=== PATIENT | male | born 1990 ===

== ENCOUNTER 2017-08-06 14:12 | Emergency (ER) | payer BC ==
[2017-08-06] MEDS ORDERED: Ketorolac 60 MG/2 ML SDV IM ONE (15:17)
[2017-08-06] MEDS ORDERED: Dicyclomine 10 MG Cap PO ONE (15:17)
--- NOTE | 2017-08-06 15:23 | EDM.PDOC ---
ED HPI GENERAL MEDICAL PROBLEM - General Chief Complaint: Abdominal Pain Stated Complaint: ABDOMIAL PAIN Time Seen by Provider: 08/06/17 15:04 - History of Present Illness INITIAL COMMENTS - FREE TEXT/NARRATIVE: HISTORY AND PHYSICAL: History of present illness: The patient is a 27-year-old male with no stated medical history no GI problems in the past and presents with complaints of pain just below his umbilicus that started his morning and has been continuous. It is not associated with nausea vomiting or diarrhea and in fact he had bowel movements today which were normal and not black or bloody. He doesn't have any history of intolerance except sometimes to onions but he does have a history of episodic heartburn but no chest pain or shortness of breath. He currently has no chest pain or shortness of breath no fevers no chills no flank pain or urinary complaints. Patient says he eats well 50% of the time and the other 50% of the time he eats fast foods and drinks caffeinated products. The patient states he did not take any medication for the pain but he does feel somewhat gassy. He tells nursing and me that when he lays down or sits up he feels the discomfort more and he thought it was more of a muscular pain. He doesn't have any history of a discrete trauma. The pain is in the midline just below the umbilicus and does not radiate. The pain does not localize right or left. Review of systems: As per history of present illness and below otherwise all systems reviewed and negative. Past medical history: As per history of present illness and as reviewed below otherwise noncontributory. Surgical history: As per history of present illness and as reviewed below otherwise noncontributory. Social history: No reported history of drug or alcohol abuse. Family history: As per history of present illness and as reviewed below otherwise noncontributory. Physical exam: General: Well-developed well-nourished man who is nontoxic and moves easily in the ED. Vital signs have been reviewed by me HEENT: Atraumatic, normocephalic, negative for conjunctival pallor or scleral icterus, mucous membranes moist, throat clear, neck supple, nontender, trachea midline. Lungs: Clear to auscultation, breath sounds equal bilaterally, chest nontender. Heart: S1S2, regular rate and rhythm no overt murmurs Abdomen: Soft, nondistended, with some tympany on percussion but no rebound or guarding and bowel sounds are slightly hypoactive. Some minimal tenderness just superiorly to the umbilicus and just inferiorly to the umbilicus but this is only on very deep palpation. Negative for masses or hepatosplenomegaly. Negative for costovertebral tenderness. Pelvis: Stable nontender. Genitourinary: Deferred. Rectal: Deferred. Extremities: Atraumatic, negative for cords or calf pain. Neurovascular unremarkable. Neuro: Awake, alert, oriented. Cranial nerves II through XII unremarkable. Cerebellum unremarkable. Motor and sensory unremarkable throughout. Exam nonfocal. Diagnostics: Abdominal x-rays UA CBC CMP amylase lipase Therapeutics: Bentyl Toradol Patient is aware of all testing results and is aware of concerns and reasons to return to the ED. I offered the patient medications for home to trial and he would like to hold off at this time. We discussed dietary changes and reduction of Mountain Dew consumption and he states understanding. Impression: Abdominal pain stable Definitive disposition and diagnosis as appropriate pending reevaluation and review of above. hypogastric area Pain Score (Numeric/FACES): 7 - Related Data Allergies Allergy/AdvReac Type Severity Reaction Status Date / Time No Known Allergies Allergy Verified 08/06/17 14:29 Home Meds: Home Meds Omeprazole 20 mg PO DAILY 08/06/17 [History] Past Medical History - Past Health History Medical/Surgical History: Denies Medical/Surgical History Gastrointestinal History: Reports: Other (See Below) Other Gastrointestinal History: hyperacidity Social & Family History - Family History Family Medical History: Noncontributory - Tobacco Use Smoking Status *Q: Former Smoker Used Tobacco, but Quit: Yes Month Tobacco Last Used: 1 - Recreational Drug Use Recreational Drug Use: No ED ROS GENERAL - Review of Systems Review Of Systems: ROS reveals no pertinent complaints other than HPI. ED EXAM, GENERAL - Physical Exam Exam: See Below (See dictation) Course - Vital Signs Last Recorded V/S: Last Vital Signs Temp 36.9 C 08/06/17 14:12 Pulse 88 08/06/17 14:12 Resp 18 08/06/17 14:12 BP 139/93 H 08/06/17 14:12 Pulse Ox 97 08/06/17 14:12 - Orders/Labs/Meds Labs: Laboratory Tests 08/06/17 08/06/17 08/06/17 Range/Units 15:00 15:28 15:28 WBC 8.04 (4.0-11.0) K/uL RBC 4.86 (4.50-5.90) M/uL Hgb 14.7 (13.0-17.0) g/dL Hct 42.6 (38.0-50.0) % MCV 87.7 (80.0-98.0) fL MCH 30.2 (27.0-32.0) pg MCHC 34.5 (31.0-37.0) g/dL RDW Std Deviation 41.2 (28.0-62.0) fl RDW Coeff of Winnie 13 (11.0-15.0) % Plt Count 265 (150-400) K/uL MPV 10.40 (7.40-12.00) fL Neut % (Auto) 56.8 (48.0-80.0) % Lymph % (Auto) 33.2 (16.0-40.0) % [place] % (Auto) 8.3 (0.0-15.0) % Eos % (Auto) 1.5 (0.0-7.0) % Baso % (Auto) 0.2 (0.0-1.5) % Neut # (Auto) 4.6 (1.4-5.7) K/uL Lymph # (Auto) 2.7 H (0.6-2.4) K/uL [place] # (Auto) 0.7 (0.0-0.8) K/uL Eos # (Auto) 0.1 (0.0-0.7) K/uL Baso # (Auto) 0.0 (0.0-0.1) K/uL Nucleated RBC % 0.0 /100WBC Nucleated RBCs # 0 K/uL Sodium 137 (136-146) mmol/L Potassium 3.9 (3.5-5.1) mmol/L Chloride 104 (98-110) mmol/L Carbon Dioxide 22 (21-31) mmol/L BUN 17 (6.0-23.0) mg/dL Creatinine 0.8 (0.6-1.5) mg/dL Est Cr Clr Drug Dosing TNP Estimated GFR (MDRD) > 60.0 ml/min Glucose 131 H (60-110) mg/dL Calcium 9.3 (8.8-10.8) mg/dL Total Bilirubin 0.4 (0.1-1.5) mg/dL AST 29 (5-40) IU/L ALT 58 H (8-54) IU/L Alkaline Phosphatase 67 (40-150) Total Protein 7.8 (6.0-8.0) g/dL Albumin 4.3 (3.5-5.0) g/dL Globulin 3.5 (2.0-3.5) g/dL Albumin/Globulin Ratio 1.2 L (1.3-2.8) Amylase 48 (10-90) U/L Lipase 24 (7-80) U/L Urine Color YELLOW Urine Appearance CLEAR Urine pH 6.5 (5.0-8.0) Ur Specific [place] 1.015 (1.001-1.035) Urine Protein NEGATIVE (NEGATIVE) mg/dL Urine Glucose (UA) NEGATIVE (NEGATIVE) mg/dL Urine Ketones NEGATIVE (NEGATIVE) mg/dL Urine Occult Blood NEGATIVE (NEGATIVE) Urine Nitrite NEGATIVE (NEGATIVE) Urine Bilirubin NEGATIVE (NEGATIVE) Urine Urobilinogen 0.2 (<2.0) EU/dL Ur Leukocyte Esterase NEGATIVE (NEGATIVE) Urine RBC 0-1 (0-2/HPF) Urine WBC 0-1 (0-5/HPF) Ur Epithelial Cells RARE (NONE-FEW) Urine Bacteria RARE (NEGATIVE) Meds: Medications Discontinued Medications Generic Name Dose Route Start Last Admin Trade Name Freq PRN Reason Stop Dose Admin Dicyclomine HCl 20 mg 08/06/17 15:17 08/06/17 15:28 Bentyl PO 08/06/17 15:18 20 mg ONETIME ONE Administration Ketorolac Tromethamine 60 mg 08/06/17 15:17 08/06/17 15:28 Toradol IM 08/06/17 15:18 60 mg ONETIME ONE Administration Departure - Departure Time of Disposition: 16:19 Disposition: Home, Self-Care 01 Condition: Good Clinical Impression: Abdominal pain Qualifiers: Abdominal location: generalized Qualified Code(s): R10.84 - Generalized abdominal pain - Discharge Information Referrals: PCP,None [Primary Care Provider] - Forms: ED Department Discharge Additional Instructions: The following information is given to patients seen in the emergency department who are being discharged to home. This information is to outline your options for follow-up care. We provide all patients seen in our emergency department with a follow-up referral. The need for follow-up, as well as the timing and circumstances, are variable depending upon the specifics of your emergency department visit. If you don't have a primary care physician on staff, we will provide you with a referral. We always advise you to contact your personal physician following an emergency department visit to inform them of the circumstance of the visit and for follow-up with them and/or the need for any referrals to a consulting specialist. The emergency department will also refer you to a specialist when appropriate. This referral assures that you have the opportunity for followup care with a specialist. All of these measure are taken in an effort to provide you with optimal care, which includes your followup. Under all circumstances we always encourage you to contact your private physician who remains a resource for coordinating your care. When calling for followup care, please make the office aware that this follow-up is from your recent emergency room visit. If for any reason you are refused follow-up, please contact the [facility] emergency department at and ask to speak to the emergency department charge nurse. [facility] Primary care- Internal Medicine and Family [address] [id number] Please try to eat more of a bland diet and no spicy foods fast foods and junk foods and avoid pop and caffeinated products. Please try to push hydration such as water juices or Gatorade. Use [id number] gas elimination products as needed as well as [id number] Tylenol or ibuprofen. Please call and follow- up in the clinic for further care and evaluation and return to the ER as needed as discussed
--- NOTE | 2017-08-06 15:54 | CR ---
EXAMINATION: Abdomen HISTORY: Pain COMPARISON: None TECHNIQUE: AP and upright views FINDINGS: There is no free air under the diaphragm. There is a nonobstructive bowel gas pattern is st ool and gas throughout the colon and rectum. No dilated loops of small bowel. No abnormal calcificati ons. No organomegaly. Visualized osseous structures appear normal. IMPRESSION: No acute findings within the abdomen.
[2017-08-06 16:06] LABS: CHLORIDE,CL 104 mmol/L (98-110); SODIUM,NA 137 mmol/L (136-146)
[2017-08-06 16:35] VITALS: BP 134/85
== END 2017-08-06 16:30 | disposition home or self-care (01) ==
LOC: MW.ED 14:12
DX: R10.84 Generalized abdominal pain (principal); Z87.891 Personal history of nicotine dependence
CPT/HCPCS: 36415; 74020; 80053; 81001; 82150; 83690; 85025; 96372; 99284; A9270; J1885; 99283